=== PATIENT | male | born 1975 | race Caucasian/White ===

== ENCOUNTER 2020-01-06 12:39 | Emergency (ER) | payer OTHER ==
[~2020-01-06] VITALS: Ht 188 cm; Wt 113.4 kg
[2020-01-06] MEDS ORDERED: BIPOLAR MED (12:48)
[2020-01-06 14:01] LABS: ABSOLUTE BASOPHILS 0.1 thou/uL (0.0-0.2); ABSOLUTE EOSINOPHILS 0.1 thou/uL (0.0-0.7); ABSOLUTE MONOCYTES 0.5 thou/uL (0.0-1.2); ABSOLUTE NEUTROPHILS 6.4 thou/uL (1.6-8.1); BASOPHILS 0.9 %; EOSINOPHILS 1.1 %; HEMATOCRIT 43.4 % (42.0-52.0); HEMOGLOBIN 15.4 gm/dL (14.0-18.0); LYMPHOCYTES 21.9 %; MCH 33.2 pg (26.0-34.0); MCHC 35.6 g/dL (28.0-37.0); MCV 93.3 fL (80.0-100.0); MONOCYTES 5.6 %; MPV 8.3 fl. (7.2-11.1); NUCLEATED RBCS 0 /100WBC; PLATELET COUNT* 315 thou/uL (150-400); POLYS 70.5 %; RBC 4.66 mil/uL (4.50-6.00); RDW-CV 13.3 % (10.5-14.5); WBC 9.1 thou/uL (4.0-11.0)
[2020-01-06 14:14] LABS: CREATININE 1.2 mg/dL (0.6-1.3); POTASSIUM 3.8 mmol/L (3.5-5.1)
[2020-01-06 14:16] LABS: PROTIME 10.3 Seconds (9.20-11.50)
[2020-01-06 14:19] LABS: ALBUMIN 4.1 g/dL (3.4-5.0); TOTAL BILIRUBIN 0.4 mg/dL (<0.1-1.0); TOTAL PROTEIN 7.5 g/dL (6.4-8.2)
[2020-01-06 17:08] VITALS: BP 133/87
--- NOTE | 2020-01-06 17:09 | EKG ---
[place] [address] ELECTROCARDIOGRAM REPORT Name: CARLOS MANUEL ORDONEZ Room: [facility]#: [id number] Admission: 01/06/20 Attend Phys: Discharge: Date of : 77 Date of Service: 01/06/20 1341 Report #: [id number] THIS REPORT FOR: //name// [facility] ED Test Date: 2020-01-06 Test Time: 13:41:10 Pat Name: CARLOS MANUEL ORDONEZ Department: Room: Gender: [employer] Supervisor: : [id number] Requested By: Shruthi Overton Order Number: [id number] MD: Kem Carias Measurements Intervals [place] Rate: 63 P: 57 CA: 178 QRS: 49 QRSD: 98 T: 32 QT: 383 QTc: 393 Interpretive Statements Sinus rhythm Baseline wander in lead(s) V4 No previous ECG available for comparison Electronically Signed On 01-06-2020 17:09:30 CDT by Kem Carias [email or web address] <ELECTRONICALLY SIGNED> By: Kem Carias MD, [facility] 01/06/20 1709 D: 07/1340 134 Kem Carias MD, FACC /EPI
== END 2020-01-06 17:10 | disposition home or self-care (01) ==
LOC: M.ERS 12:39
PROVIDERS: Personal Emergency Response Attendant
DX: B34.9 Viral infection, unspecified (principal); Z20.828 Contact with and (suspected) exposure to other viral communicable diseases